=== PATIENT | female | born 1960 | race Caucasian/White ===

== ENCOUNTER 2016-12-08 14:11 | Inpatient (IN) | payer OTHER ==
--- NOTE | ~2016-12-08 | DS ---
Discharge Summary [address] [place]. [address] NAME: SANDI ARELLANO : 58 STATUS : DIS Janina PAT#: [id number] AGE: 56 ADM/REG DATE : 12/08/16 MR#: [id number] REPORT SERV DATE: 12/12/16 DICTATED BY: ELTON STAPLETON DATE: 12/11/16 REPORT STATUS : Draft TRANSCRIBED BY: MODAbdifatah DATE: 12/11/16 ADMISSION DATE: 12/08/2016 DISCHARGE DATE: 12/11/2016 CONSULTATION: None. INVASIVE PROCEDURES: None. DISCHARGE DIAGNOSES: 1. Acute encephalopathy secondary to medication side effect. 2. Acute on chronic hypoxic respiratory failure. 3. Hypertension. 4. Severe hypothyroidism. 5. Hyperlipidemia. 6. Diabetes mellitus on insulin therapy. 7. Acute kidney injury on chronic kidney disease stage 3. 8. Transaminitis. 9. Schizoaffective disorder. 10.Chronic obstructive pulmonary disease. 11.Acute urinary retention. DISCHARGE CONDITION: Stable. HISTORY OF PRESENT ILLNESS: For detailed HPI, please make reference to Dr. Elton Stapleton dictation on 12/08/2016. In brief, this is a 56-year-old female with medical history significant for COPD, diabetes mellitus type 2, schizoaffective disorder, depression, hypertension, hypothyroidism who presented to the hospital with complaints of generalized weakness and hypersomnolence. In the ER vital signs: Blood pressure was 162/87, temperature was 98.2, pulse rate was 85, respiratory rate was 18, saturating 95% on 2 L of oxygen. Physical examination done in the ER shows an excessively drowsy female but alert and oriented. On presentation, ABG showed a pH of 7.33, PaCO2 of 50, PaO2 of 60. The patient was placed on 3 L of nasal cannula oxygen. The patient's saturation subsequently improved. LABORATORY DATA: Sodium 137, potassium was 3.7, chloride was 103, bicarb was 25, creatinine was 1.09. WBC was 9.5, hemoglobin was 12.3. Chest x-ray shows evidence of pulmonary vascular congestion with no bilateral pleural effusion. Urine drug screen was negative. An assessment of acute encephalopathy secondary to possible medication side effect due to sedative hypnotics such as Lyrica and Vistaril was made in the ER, the patient was admitted to the Hospitalist Service. HOSPITAL COURSE: Acute encephalopathy. I held the patient's Vistaril and Lyrica and monitored closely. The patient's respiratory status subsequently improved. The patient also reported significant improvement in overall alertness and awake after the medications were held. All of patient's anti-psychiatry medications were continued without any behavioral disorder. Blood cultures were obtained. No evidence of infection contributing Discharge Summary [address] [place]. [address] NAME: SANDI ARELLANO : 58 STATUS : DIS Janina PAT#: [id number] AGE: 56 ADM/REG DATE : 12/08/16 MR#: [id number] REPORT SERV DATE: 12/12/16 DICTATED BY: ELTON STAPLETON DATE: 12/11/16 REPORT STATUS : Draft TRANSCRIBED BY: DEANNE DATE: 12/11/16 to patient's encephalopathy. The patient's blood sugar remained stable throughout the course of admission. No evidence of hypoglycemia contributing to the patient's encephalopathy. CT of the brain shows no acute intracranial pathology. The patient was advised to continue all regular medications and continued to hold Lyrica and Vistaril until she follows up with her primary care physician. Acute hypercapnic and hypoxic respiratory failure likely due to hypersomnolence due to elevated CO2. The patient was placed on nasal cannula oxygen became more awake and alert. Repeat ABG shows significant improvement. The patient was advised to continue follow up with primary care physician. No evidence of COPD exacerbation contributing to respiratory failure during the course of this admission. No evidence of excessive narcotic use contributing to hypercapnia. Volume overload. The patient had gentle diuresis during the course of this admission. However, the creatinine subsequently trended up to 1.4 from a baseline of 1.9. The patient's diuresis was subsequently held. The patient's creatinine subsequently trended down back to baseline prior to discharge. Severe hypothyroidism. The patient was found to have a TSH of 20 and free T4 of 0.57. She claimed that she has been compliant with levothyroxine 150 mcg as prescribed by her primary care physician. During the course of this admission, levothyroxine was increased to 175 mcg p.o. daily. The patient was advised to continue follow up with her primary care physician. Severe hypothyroidism may also explain the patient's excessive generalized fatigue and drowsiness and hypersomnolence. The patient was advised to continue follow up with her primary care physician. Elevated liver enzymes. The patient reported that she has had chronically elevated liver enzymes. Elevated liver enzymes were stable throughout the course of this admission. Right upper quadrant ultrasound was done that shows that the liver function was normal. Hepatitis profile was pending at the time of this dictation. If hepatitis profile returned back negative, the patient will be discharged and will be advised to follow up with her primary care physician. Schizoaffective disorder. No evidence of suicidal ideation, hallucination, or homicidal ideation during this admission. The patient was continued on regular home dose anti- psychiatric medication and was advised to follow up with a psychiatrist as an outpatient. Diabetes mellitus. The patient's blood sugar was controlled throughout the course of this admission with subcu insulin. The patient was advised to continue regular home dose of Levemir insulin at the time of discharge. DISCHARGE DISPOSITION: Home with home health. DISCHARGE FOLLOWUP: 1. Follow up with primary care physician within one to two weeks of discharge. 2. Follow up with psychiatrist within two to three weeks of discharge. Discharge Summary [address] [address] NAME: SANDI ARELLANO : 58 STATUS : DIS Janina PAT#: [id number] AGE: 56 ADM/REG DATE : 12/08/16 MR#: [id number] REPORT SERV DATE: 12/12/16 DICTATED BY: ELTON STAPLETON DATE: 12/11/16 REPORT STATUS : Draft TRANSCRIBED BY: DEANNE DATE: 12/11/16 DISCHARGE ACTIVITY: As tolerated. DISCHARGED DIET: ADA 1800 calorie diet. Greater than 35 minutes was used to prepare this patient's discharge, reconcile medication, and advised the patient on discharge plans and followup. DICTATED BY: MD DONYA Alamo/DEANNE Elton Stapleton MD / [id number] CC: Elton Stapleton MD
--- NOTE | ~2016-12-08 | HP ---
History And Physical [address] [address] [facility] [place]. [address] NAME: SANDI ARELLANO : 58 STATUS : ADM Janina PAT#: [id number] AGE: 56 ADM/REG DATE : 12/08/16 MR#: [id number] REPORT SERV DATE: 12/08/16 DICTATED BY: ELTON STAPLETON DATE: 12/08/16 REPORT STATUS : Draft TRANSCRIBED BY: DEANNE DATE: 12/08/16 DATE OF ADMISSION: 12/08/2016 CHIEF COMPLAINT: Generalized weakness and somnolence. HISTORY OF PRESENT ILLNESS: This is a 56-year-old female with medical history significant for COPD, diabetes mellitus type 2, schizoaffective disorder, depression, hypertension, hypothyroidism, who presented to the hospital with complaints of generalized weakness and somnolence. The patient reports that she was in her usual state of health until about five days ago when she went to her primary care physician with complaint of left heel pain. She reported that her primary care physician gave her a steroid injection on her left heel and was subsequently advised to continue all her regular medications. Subsequently, she reports that within 24 hours, she started noticing progressive generalized weakness, and had multiple ground level falls. She reports no loss of consciousness, no presyncope, and no head injury. The patient reports that she has developed generalized fatigue, generalized weakness, but denies any fever, no chills. On the day of presentation, she reported she woke up in the morning, took all her regular medications including anti-psychiatric medications, decided to walk to the bathroom, but continued to feel extremely weak. She decided to sit right on the floor in the bathroom while trying to call for help of her partner to help. She reported that her partner came to the bathroom, but was unable to help her up. They decided to call the EMS. Prior to arrival of the EMS, the patient reported that she became very drowsy and subsequently fell asleep. On arrival of the EMS, it was noted that the patient was very somnolent, was uneasy to arouse. Per verbal report, it was noted that the patient reported that she fell into a "deep sleep." On arriving to the ER, the patient was noted to continue to have excessive drowsiness. An ABG was done that showed a pH of 7.33, PaCO2 of 50, PaO2 of 60. The patient was placed on nasal oxygen and saturation subsequently improved. In the ER, initial assessment by ER's report was concerned for benzo overdose; however, the patient had a urine drug screen that was negative for benzodiazepine. At the time of my evaluation, the patient was more alert, was alert, and reported the history stated above. At the time of my evaluation, in addition to the above-stated history, the patient also reported diffuse generalized body swelling, reported bilateral lower extremity swelling, and occasional shortness of breath. She denied any cough, no fever, no chills. She denies any orthopnea, no PND, no chest pain, no palpitation. She denied any history of seizure-like activities. No recent hypoglycemia episodes. PAST MEDICAL HISTORY: 1. Insulin-treated diabetes mellitus type 2. 2. COPD. 3. Schizoaffective disorder. History And Physical [address] [address] NAME: SANDI ARELLANO : 58 STATUS : ADM Janina PAT#: [id number] AGE: 56 ADM/REG DATE : 12/08/16 MR#: [id number] REPORT SERV DATE: 12/08/16 DICTATED BY: ELTON STAPLETON DATE: 12/08/16 REPORT STATUS : Draft TRANSCRIBED BY: DEANNE DATE: 12/08/16 4. Hypertension. 5. Hyperlipidemia. 6. Hypothyroidism. 7. History of diabetic ketoacidosis in 09/11/2016. 8. History of type 2 [place], 09/08/2016. 9. Also prior history of RAFAEL. PAST SURGICAL HISTORY: 1. History of cholecystectomy. 2. Allergy history. ALLERGIES: SHE IS ALLERGIC TO PENICILLIN, SULFA, CODEINE, AND ZOFRAN. SOCIAL HISTORY: The patient continues to smoke one pack of cigarettes a day. Denies drinking alcohol or illicit drug use. She reports she has a living partner, they have been living together for over 20 years. FAMILY HISTORY: Significant for diabetes mellitus and hypertension. HOME MEDICATIONS: 1. Levemir 25 units subcu b.i.d. 2. Insulin lispro per sliding scale. 3. Dulera 200 mcg/5 mcg inhaler two puffs b.i.d. 4. Ketoralac 10 mg p.o. daily. 5. Zestoretic 05/02.5 one tablet p.o. daily. 6. Synthroid 150 mcg p.o. daily. 7. Hinckley-3 fatty acid 1000 mg p.o. daily. 8. Montelukast 10 mg p.o. daily. 9. Prednisone 10 mg p.o. daily. 10.Phenergan 25 mg p.o. four times a day. 11.Trazodone 150 mg p.o. at bedtime. 12.Zoloft 400 mg p.o. daily. 13.Glipizide extended release 5 mg p.o. daily. 14.Aspirin 81 mg p.o. daily. 15.Loratadine 10 mg p.o. daily. 16.Benztropine 2 mg p.o. b.i.d. 17.Lyrica 150 mg p.o. three times a day. 18.Fluphenazine 2.5 mg p.o. b.i.d. 19.Vistaril 25 mg p.o. four times a day. 20.Bupropion 100 mg p.o. daily. 21.Lipitor 40 mg p.o. daily. REVIEW OF SYSTEMS: A 12-point review of systems performed, positive findings as per HPI. PHYSICAL EXAMINATION: VITAL SIGNS: Blood pressure 162/84, temperature 98.2, pulse rate 85, respiratory rate 18, History And Physical [address] [address] NAME: SANDI ARELLANO : 58 STATUS : ADM Janina PAT#: [id number] AGE: 56 ADM/REG DATE : 12/08/16 MR#: [id number] REPORT SERV DATE: 12/08/16 DICTATED BY: ELTON STAPLETON DATE: 12/08/16 REPORT STATUS : Draft TRANSCRIBED BY: MODL DATE: 12/08/16 saturating 95% on 2 L of oxygen. GENERAL: The patient is awake, but occasionally feels drowsy, but not in any obvious respiratory distress. HEENT: Pupils equal, round, and reactive. Extraocular muscles intact. Not pale. Acyanotic. Anicteric. Oral mucosa dry. NECK: No JVD. No bruit. No palpably enlarged thyromegaly. CHEST: Nontender. Equal expansion. LUNGS: Clear to auscultation bilaterally. No wheezes. No rhonchi. ABDOMEN: Bowel sounds normoactive. Soft, nontender. No palpably enlarged organomegaly. EXTREMITIES: Lower extremities; bilateral pitting edema, 2+ all the way down to the knee. LABORATORY DATA: Arterial blood gas: The pH of 7.33, PaCO2 of 50, PaO2 of 60. Chemistry: Sodium 137, potassium 6.7, chloride 103, bicarb 25, BUN 46, creatinine 1.09, GFR 56, glucose 236, calcium 8.8, magnesium 2.4. Troponin less than 0.02. Acetaminophen less than 2.0. Salicylates 2.7. Alcohol less than 10. Hematology: WBC 9.5, hemoglobin 12.3, hematocrit 35.5, platelets 233. PT 12.1. INR 0.9. IMAGING: CT brain, impression: Unremarkable noncontrast head CT. No acute intracranial pathology. Chest x-ray: I personally reviewed the patient's chest x-ray. Per my interpretation, presence of pulmonary vascular congestion. No bilateral pleural effusion. Official report pending. Urinalysis negative. Urine drug screen, negative. ASSESSMENT: 1. Acute encephalopathy. 2. Acute respiratory failure with hypercapnia and hypoxia. 3. Volume overload. 4. Chronic obstructive pulmonary disease. 5. Schizoaffective disorder. 6. Hypothyroidism. 7. Hypertension. 8. Insulin treated diabetes mellitus. 9. Hypothyroidism. 10.Hyperlipidemia. PLAN: 1. Acute encephalopathy. Definitive etiology at this time unclear, but my suspicion is that this may be related to the patient's medication side effects, especially the antipsychotic medications and the anti-hypnotic medication. At this time, given the patient has extensive psychiatric history, I will not hold off any of the antipsychotic History And Physical [address] [address] NAME: SANDI ARELLANO : 58 STATUS : ADM Janina PAT#: [id number] AGE: 56 ADM/REG DATE : 12/08/16 MR#: [id number] REPORT SERV DATE: 12/08/16 DICTATED BY: ELTON STAPLETON DATE: 12/08/16 REPORT STATUS : Draft TRANSCRIBED BY: MODL DATE: 12/08/16 medications; however, sedating medications such as Atarax and Lyrica will be held at this time. Neuro checks will be performed every four hours. The patient will be admitted to the cardiac tele for close monitoring. 2. Acute respiratory failure with hypercapnia and hypoxia, likely due to the patient's hypersomnolence. No evidence of opioid overdose in this patient. The patient's physical examination is not in keeping with acute COPD exacerbation. At this time, now that the patient is more alert, I will repeat ABG to further re-evaluate the patient's respiratory status. The patient will continue oxygen by nasal cannula. The patient is currently maintaining O2 saturation above 98% on 2 L of oxygen. 3. Fluid overload. The patient has significant bilateral lower extremity edema. Chest x- ray showed mild pulmonary congestion per my interpretation. I will check a BNP. I will treat the patient with empiric IV Lasix 40 mg x1 dose, and monitor closely. The patient's last echocardiogram was done in 09/08/2016 and shows a preserved EF. I will not repeat an echocardiogram at this time. I will obtain a urine protein creatinine ratio. 4. Schizoaffective disorder. I will continue the patient's home dose anti-psychiatric medication. No evidence of hallucination or behavioral disorder at this time. 5. Hypertension. We will continue the patient's home dose of blood pressure. 6. Hypothyroidism. I will check a TSH and free T4. I will continue the patient's levothyroxine. 7. Insulin treated diabetes mellitus type 2. Last known A1c was 10.9. The patient's blood sugar on presentation was 236. The patient does not meet the diagnostic criteria for DKA at the time of my evaluation, the patient's repeat blood sugar was 158. We will continue the patient's Levemir and sliding scale insulin at this time. 8. Code status, full code. 9. Admission disposition, cardiac tele. 10.Admission diet, 1800 ADA calorie diet. 11.Admission status, observation. IOO/MODL Elton Stapleton MD / [id number] CC: Elton Stapleton MD
[2016-12-08 12:04] LABS: BASOPHILS 0.4 %; BASOPHILS ABSOLUTE 0.04 10/3/uL (0.0-0.16); EOSINOPHILS 2.2 %; EOSINOPHILS ABSOLUTE 0.21 10/3/uL (0.0-0.53); HEMATOCRIT 35.5 % (36.0-48.0); HEMOGLOBIN 12.3 g/dL (12.0-16.0); IMMATURE GRANULOCYTES 1.4 %; IMMATURE GRANULOCYTES ABSOLUTE 0.13 10/3/uL (0.0-0.11); LYMPHOCYTES 26.2 %; LYMPHOCYTES ABSOLUTE 2.48 10/3/uL (0.67-4.30); MEAN CORPUS HGB CONC 34.6 g/dL (32.0-36.0); MEAN CORPUSCULAR HEMOGLOB 29.7 pg (26.0-34.0); MEAN CORPUSCULAR VOLUME 85.7 fL (80-100); MEAN PLATELET VOLUME 9.8 fL (9.2-13.0); MONOCYTES 5.9 %; MONOCYTES ABSOLUTE 0.56 10/3/uL (0.21-1.20); NEUTROPHILS 63.9 %; NEUTROPHILS ABSOLUTE 6.05 10/3/uL (2.02-8.40); PLATELET COUNT 233 10/3/uL (150-400); RBC DISTRIBUTION WIDTH 13.9 % (12.0-16.0); RED CELL COUNT 4.14 10/6/uL (4.0-5.6); WHITE BLOOD CELLS 9.5 10/3/uL (4.5-10.5)
[2016-12-08 12:07] LABS: MANUAL DIFF NO %
[2016-12-08 12:13] LABS: INTERNATIONAL NORMAL RATI 0.9 UNITS (-); PARTIAL THROMBO TIME 25.7 SEC (22.5-37.2); PROTIME (NOT ORD) 12.1 SEC (12.0-14.5)
[2016-12-08 12:21] LABS: CHEST PAIN PROFILE TAT 0 Hrs 21 Mins; CHLORIDE, SERUM 103 MMOL/L (96-112); CO2 (CARBON DIOXIDE) 25 MMOL/L (24-34); CREATININE 1.09 MG/DL (0.55-1.02); GFR AFRICAN AMERICAN 65 ML/MIN (>=60); GFR NON AFRICAN AMERICAN 56 ML/MIN (>=60); SALICYLATE 2.7 MG/DL (-); SODIUM, SERUM 137 MMOL/L (135-148); TROPONIN I <0.02 NG/ML (<0.05)
[2016-12-08 12:21] LABS: ALLENS TEST Pos; BE (BASE EXCESS) -0.9 MEQ/L (0 +/- 2.5); CARBOXYHEMOGLOBIN 6.9 % (0-3); HCO3 (ACTUAL BICARBONATE) 25.7 MEQ/L (23-27); INSTRUMENT SERIAL # 8087; O2 CONTENT 15.6 VOL% (18-24); OPERATOR ID 18801; PCO2 (CO2 TENSION) 50 MMHG (35-45); PO2 (O2 TENSION) 60 MMHG (79-93); SAMPLE Arterial; pH 7.33 (7.37-7.43)
[2016-12-08 12:23] LABS: ACETAMINOPHEN LEVEL (TYLENOL) < 2.0 MCG/ML (10.0-20.0); ALCOHOL < 10 MG/DL (0); BUN (BLOOD UREA NITROGEN) 46 MG/DL (6-23); CALCIUM, SERUM 8.8 MG/DL (8.5-10.4); GLUCOSE, SERUM 236 MG/DL (60-99); POTASSIUM, SERUM 4.7 MMOL/L (3.5-5.3)
[~2016-12-08 14:11] MED LIST: *UNABLE1; *UNABLE2; ADVAIR INH; ASAB PO; ASABAYER PO; AT25 PO; BUPROPION PO; BUSPAR15 M1 PO; BUSPIRONE7.5 MG PO; CELEXA PO; CELEXA40 MG PO; CLARIT10 PO; COG2 PO; COGENTIN; COMBIVENT RESPIM4 GM INH; EX-LAX PO; FLONASE NAS; FLUPHENAZINE; FLUPHENAZINE PO; FLUPHENAZINE10 MG PO; FLUPHENAZINE5 MG PO; GLUCOPHAGE1000 MG PO; GLUCOTRO10 PO; GLUCPH PO; GLUCXL5 PO; HUMALOG SC; LANTUS SC; LEVAQUIN750 MG PO; LEVEMIR SC; LIPITOR40 PO; LYRICA PO; LYRICA150 MG PO; LYRICA75 PO; METFORMIN PO; NOVOLOG SC; PR25 PO; PRINZIDE1 TAB PO; PROVENTSOL INH; PROVHFA INH; SYN.025B PO; SYN125 PO; SYNTHROID PO; VASOTEC10 PO; WELLSR100 PO; ZOL50 PO; [UNRECOGNIZED DRUG - OTHER]
[2016-12-08 15:38] LABS: ASCORBIC ACID (UR NOT ORDER) NEG (NEG); BILIRUBIN, URINE NEGATIVE (NEG); ER URINALYSIS TAT 0 Hrs 10 Mins; KETONE, URINE NEGATIVE (NEG); LEUKOCYTE ESTERASE(NOT OR NEG (NEG); NITRITE (URINE) NEG (NEG); WBC (NOT ORDERED) (RFLEX) 2 (0-5)
[2016-12-08 15:45] LABS: AMPHETAMINES (NOT ORD) NEG (NEG); BARBITURATES (NOT ORDERED NEG (NEG); BENZODIAZEPINES (NOT ORD) NEG (NEG); CANNABINOIDS (THC) NEG (NEG); COCAINE (NOT ORDERED) NEG (NEG); OPIATES NEG (NEG); PHENCYCLIDINE(PCP) NEG (NEG); TRICYCLICS NEG (NEG)
[2016-12-08] MEDS ORDERED: LEVEMIR SC (15:51)
[2016-12-08] MEDS ORDERED: Humalog Inj (15:51)
[2016-12-08] MEDS ORDERED: TORATAB PO (15:52)
[2016-12-08] MEDS ORDERED: DULERA 200 MCG/13 GM INH (15:52)
[2016-12-08] MEDS ORDERED: SINGULAIR1 PO (15:53)
[2016-12-08] MEDS ORDERED: Fish Oil (15:53)
[2016-12-08] MEDS ORDERED: Zestoretic (15:53)
[2016-12-08] MEDS ORDERED: LEVOTHYROXIN175 MCG PO (15:53)
[2016-12-08] MEDS ORDERED: PREDNISONE (15:53)
[2016-12-08] MEDS ORDERED: TRAZODONE150 MG PO (15:54)
[2016-12-08] MEDS ORDERED: PR25 PO (15:54)
[2016-12-08] MEDS ORDERED: GLUCOTRO10 PO (15:55)
[2016-12-08] MEDS ORDERED: ZOL100 PO (15:55)
[2016-12-08] MEDS ORDERED: ASAB PO (15:55)
[2016-12-08] MEDS ORDERED: FLUPHENAZINE (15:56)
[2016-12-08] MEDS ORDERED: COG2 PO (15:56)
[2016-12-08] MEDS ORDERED: CLARIT10 PO (15:56)
[2016-12-08] MEDS ORDERED: LYRICA150 MG PO (15:56)
[2016-12-08] MEDS ORDERED: VIST25 PO (15:58)
[2016-12-08] MEDS ORDERED: LIPITOR40 PO (15:58)
[2016-12-08] MEDS ORDERED: WELLSR100 PO (15:58)
[2016-12-08 20:32] LABS: FREE T4 0.57 NG/DL (0.76-1.46)
[2016-12-08 20:33] LABS: ULTRASENSITIVE TSH 20.6 MCIU/ML (0.358-3.740)
[2016-12-08 22:07] LABS: ALLENS TEST Pos; BE (BASE EXCESS) 1.1 MEQ/L (0 +/- 2.5); CARBOXYHEMOGLOBIN 2.9 % (0-3); HCO3 (ACTUAL BICARBONATE) 26.3 MEQ/L (23-27); HEMOBLOGIN CONTENT 14.2 G/DL (12-16); INSTRUMENT SERIAL # 35151; METHEMOGLOBIN 0.5 % (0-3); O2 CONTENT 17.9 VOL% (18-24); OPERATOR ID 31061; PCO2 (CO2 TENSION) 44 MMHG (35-45); PO2 (O2 TENSION) 65 MMHG (79-93); SAMPLE Arterial; pH 7.39 (7.37-7.43)
[2016-12-09 07:10] LABS: BASOPHILS 0.5 %; BASOPHILS ABSOLUTE 0.04 10/3/uL (0.0-0.16); EOSINOPHILS 1.1 %; EOSINOPHILS ABSOLUTE 0.09 10/3/uL (0.0-0.53); HEMOGLOBIN 12.5 g/dL (12.0-16.0); IMMATURE GRANULOCYTES 1.3 %; IMMATURE GRANULOCYTES ABSOLUTE 0.11 10/3/uL (0.0-0.11); LYMPHOCYTES 31.2 %; MANUAL DIFF NO %; MEAN CORPUS HGB CONC 34.7 g/dL (32.0-36.0); MEAN CORPUSCULAR HEMOGLOB 29.6 pg (26.0-34.0); MEAN CORPUSCULAR VOLUME 85.1 fL (80-100); MEAN PLATELET VOLUME 10.2 fL (9.2-13.0); MONOCYTES ABSOLUTE 0.33 10/3/uL (0.21-1.20); NEUTROPHILS 61.9 %; NEUTROPHILS ABSOLUTE 5.16 10/3/uL (2.02-8.40); PLATELET COUNT 238 10/3/uL (150-400); RBC DISTRIBUTION WIDTH 14.1 % (12.0-16.0); RED CELL COUNT 4.23 10/6/uL (4.0-5.6); WHITE BLOOD CELLS 8.3 10/3/uL (4.5-10.5)
[2016-12-09 07:37] LABS: A/G RATIO 0.6 (0.7-1.9); ALBUMIN 2.1 G/DL (3.5-5.0); BUN (BLOOD UREA NITROGEN) 46 MG/DL (6-23); CALCIUM, SERUM 8.5 MG/DL (8.5-10.4); CHLORIDE, SERUM 103 MMOL/L (96-112); CO2 (CARBON DIOXIDE) 26 MMOL/L (24-34); CREATININE 1.03 MG/DL (0.55-1.02); GFR AFRICAN AMERICAN 70 ML/MIN (>=60); GFR NON AFRICAN AMERICAN 60 ML/MIN (>=60); GLOBULIN 3.3 G/DL (2.5-4.1); SGOT(AST) 66 U/L (5-40); SGPT(ALT) 75 U/L (5-65); SODIUM, SERUM 136 MMOL/L (135-148); TOTAL PROTEIN 5.4 G/DL (6.0-8.5)
[2016-12-09 07:38] LABS: ALKALINE PHOSPHATASE 204 U/L (45-117); GLUCOSE, SERUM 389 MG/DL (60-99); PHOSPHORUS, SERUM 3.8 MG/DL (2.5-4.5); TOTAL BILIRUBIN 0.2 MG/DL (0-1.2)
[2016-12-09 17:01] LABS: BASOPHILS 0.4 %; BASOPHILS ABSOLUTE 0.04 10/3/uL (0.0-0.16); EOSINOPHILS 1.2 %; EOSINOPHILS ABSOLUTE 0.13 10/3/uL (0.0-0.53); HEMATOCRIT 36.3 % (36.0-48.0); HEMOGLOBIN 12.5 g/dL (12.0-16.0); IMMATURE GRANULOCYTES 0.9 %; IMMATURE GRANULOCYTES ABSOLUTE 0.09 10/3/uL (0.0-0.11); LYMPHOCYTES 37.2 %; MEAN CORPUS HGB CONC 34.4 g/dL (32.0-36.0); MEAN CORPUSCULAR HEMOGLOB 29.8 pg (26.0-34.0); MEAN CORPUSCULAR VOLUME 86.6 fL (80-100); MEAN PLATELET VOLUME 10.3 fL (9.2-13.0); MONOCYTES 5.3 %; MONOCYTES ABSOLUTE 0.55 10/3/uL (0.21-1.20); NEUTROPHILS ABSOLUTE 5.76 10/3/uL (2.02-8.40); PLATELET COUNT 256 10/3/uL (150-400); RBC DISTRIBUTION WIDTH 14.2 % (12.0-16.0); RED CELL COUNT 4.19 10/6/uL (4.0-5.6); WHITE BLOOD CELLS 10.5 10/3/uL (4.5-10.5)
[2016-12-09 17:05] LABS: MANUAL DIFF NO %
[2016-12-09 17:14] LABS: BUN (BLOOD UREA NITROGEN) 49 MG/DL (6-23); CALCIUM, SERUM 8.6 MG/DL (8.5-10.4); CHLORIDE, SERUM 103 MMOL/L (96-112); CREATININE 1.43 MG/DL (0.55-1.02); GFR AFRICAN AMERICAN 47 ML/MIN (>=60); GFR NON AFRICAN AMERICAN 41 ML/MIN (>=60); PHOSPHORUS, SERUM 4.7 MG/DL (2.5-4.5); POTASSIUM, SERUM 4.5 MMOL/L (3.5-5.3); SODIUM, SERUM 139 MMOL/L (135-148)
[2016-12-09 17:18] LABS: CO2 (CARBON DIOXIDE) 32 MMOL/L (24-34); GLUCOSE, SERUM 78 MG/DL (60-99)
[2016-12-09 18:41] LABS: ALBUMIN 2.3 G/DL (3.5-5.0); TOTAL BILIRUBIN 0.2 MG/DL (0-1.2); TOTAL PROTEIN 5.5 G/DL (6.0-8.5)
[2016-12-09 18:44] LABS: ALKALINE PHOSPHATASE 211 U/L (45-117); DIRECT BILIRUBIN < 0.1 MG/DL (0.0-0.4); INDIRECT BILIRUBIN(NOT ORDER) 0.1 MG/DL (0.1-0.9); SGOT(AST) 78 U/L (5-40); SGPT(ALT) 79 U/L (5-65)
[2016-12-10 09:22] LABS: BASOPHILS 0.2 %; BASOPHILS ABSOLUTE 0.02 10/3/uL (0.0-0.16); EOSINOPHILS 1.9 %; EOSINOPHILS ABSOLUTE 0.21 10/3/uL (0.0-0.53); HEMATOCRIT 38.9 % (36.0-48.0); HEMOGLOBIN 12.8 g/dL (12.0-16.0); IMMATURE GRANULOCYTES 0.7 %; IMMATURE GRANULOCYTES ABSOLUTE 0.08 10/3/uL (0.0-0.11); LYMPHOCYTES 25.9 %; LYMPHOCYTES ABSOLUTE 2.87 10/3/uL (0.67-4.30); MANUAL DIFF NO %; MEAN CORPUS HGB CONC 32.9 g/dL (32.0-36.0); MEAN CORPUSCULAR HEMOGLOB 29.3 pg (26.0-34.0); MEAN PLATELET VOLUME 10.3 fL (9.2-13.0); MONOCYTES 2.9 %; MONOCYTES ABSOLUTE 0.32 10/3/uL (0.21-1.20); NEUTROPHILS 68.4 %; PLATELET COUNT 235 10/3/uL (150-400); RBC DISTRIBUTION WIDTH 14.2 % (12.0-16.0); RED CELL COUNT 4.37 10/6/uL (4.0-5.6); WHITE BLOOD CELLS 11.1 10/3/uL (4.5-10.5)
[2016-12-10 09:33] LABS: ALBUMIN 2.3 G/DL (3.5-5.0); ALKALINE PHOSPHATASE 214 U/L (45-117); CALCIUM, SERUM 8.4 MG/DL (8.5-10.4); CHLORIDE, SERUM 104 MMOL/L (96-112); CREATININE 1.13 MG/DL (0.55-1.02); GFR AFRICAN AMERICAN 62 ML/MIN (>=60); GFR NON AFRICAN AMERICAN 54 ML/MIN (>=60); POTASSIUM, SERUM 4.6 MMOL/L (3.5-5.3); SGOT(AST) 64 U/L (5-40); SGPT(ALT) 74 U/L (5-65); SODIUM, SERUM 134 MMOL/L (135-148); TOTAL BILIRUBIN 0.3 MG/DL (0-1.2); TOTAL PROTEIN 5.7 G/DL (6.0-8.5)
[2016-12-10 09:34] LABS: BUN (BLOOD UREA NITROGEN) 45 MG/DL (6-23); CO2 (CARBON DIOXIDE) 27 MMOL/L (24-34); DIRECT BILIRUBIN < 0.1 MG/DL (0.0-0.4); GLUCOSE, SERUM 273 MG/DL (60-99); INDIRECT BILIRUBIN(NOT ORDER) 0.2 MG/DL (0.1-0.9); PHOSPHORUS, SERUM 3.6 MG/DL (2.5-4.5)
[2016-12-11 12:41] LABS: HEP A ANTIBODY IGM NON-REACTIVE (NON-REACT); HEPATITIS B CORE AB IGM NON-REACTIVE (NON-REAC); HEPATITIS B SURFACE ANTIGEN NON-REACTIVE (NON-REACT)
[2016-12-11 12:42] LABS: HEPATITIS C ANTIBODY NON-REACTIVE (NON-REACT)
[2016-12-11] MEDS ORDERED: MULTIVITAMIN (13:23)
[2016-12-11] MEDS ORDERED: NICOTINE PATCH (13:24)
[2017-01-26] MEDS ORDERED: AT25 PO (10:09)
[2017-01-26] MEDS ORDERED: BACTROINT TOP (10:11)
[2017-01-26] MEDS ORDERED: PROVHFA INH (10:11)
[2017-01-26] MEDS ORDERED: NEUR300 PO (10:12)
[2017-01-26] MEDS ORDERED: COMBIVENT RESPIM4 GM INH (10:15)
[2017-01-28] MEDS ORDERED: FISH-EPA1000 MG PO (14:59)
[2017-01-28] MEDS ORDERED: COMBIVENT RESPIM4 GM INH (15:00)
[2017-01-28] MEDS ORDERED: MULTIVITAMI1 PO (15:03)
[2017-01-28] MEDS ORDERED: ZESTORETIC1 TAB PO (15:04)
[2017-01-28] MEDS ORDERED: FLUPHENAZINE2.5 MG PO (15:05)
[2017-01-28] MEDS ORDERED: PR25 PO (15:06)
[2017-01-28] MEDS ORDERED: CLINDA150 PO (15:07)
[2017-01-28] MEDS ORDERED: HUMALOG (15:12)
[2017-02-04] MEDS ORDERED: COREG12 PO (11:48)
[2017-02-04] MEDS ORDERED: NOVOLOG SC ×2 (11:50)
[2017-02-04] MEDS ORDERED: LEVEMIR SC (12:00)
[2017-02-04] MEDS ORDERED: SEROQUEL1C PO (12:05)
[2017-02-08] MEDS ORDERED: *UNABLE2 (05:02)
[2017-02-08] MEDS ORDERED: COREG6 PO (11:20)
[2017-02-08] MEDS ORDERED: LIPITOR40 PO (11:20)
[2017-02-08] MEDS ORDERED: HALF81 PO (11:20)
[2017-02-08] MEDS ORDERED: CLARIT10 PO (11:21)
[2017-02-08] MEDS ORDERED: NEUR300 PO (11:21)
[2017-02-08] MEDS ORDERED: NOVOLOG SC (11:21)
[2017-02-08] MEDS ORDERED: SYNTHROID175 MCG PO (11:21)
[2017-02-08] MEDS ORDERED: ZESTORETIC1 TAB PO (11:21)
[2017-02-08] MEDS ORDERED: FISH-EPA1000 MG PO (11:22)
[2017-02-08] MEDS ORDERED: MULTIVITAMI1 PO (11:22)
[2017-02-08] MEDS ORDERED: ZOL100 PO (11:22)
[2017-02-08] MEDS ORDERED: SINGULAIR1 PO (11:22)
[2017-02-08] MEDS ORDERED: SEROQUEL1C PO ×2 (11:22→17:01)
[2017-02-08] MEDS ORDERED: COMBIVENT RESPIM4 GM INH (11:23)
[2017-02-08] MEDS ORDERED: BACTROINT TOP (11:23)
[2017-02-08] MEDS ORDERED: LEVEMIR SC ×2 (11:23→16:57)
[2017-02-08] MEDS ORDERED: DULERA 200 MCG/13 GM INH (11:23)
[2017-03-10] MEDS ORDERED: PROVHFA INH (20:56)
[2017-03-10] MEDS ORDERED: VIST25 PO (20:57)
[2017-03-10] MEDS ORDERED: JANUMET1 TA1 PO (20:57)
[2017-03-10] MEDS ORDERED: TRAZODONE150 MG PO (20:59)
[2017-03-10] MEDS ORDERED: PR25 PO (20:59)
[2017-03-10] MEDS ORDERED: ACET500CAP PO (21:01)
[2017-03-13] MEDS ORDERED: LEVAQUIN750 MG PO (09:19)
[2017-03-13] MEDS ORDERED: FLORASTOR250 MG PO (09:20)
[2017-03-13] MEDS ORDERED: NICOTINE PATCH TOP (09:21)
[2017-03-24] MEDS ORDERED: NEUR300 PO (09:47)
[2017-03-24] MEDS ORDERED: CENTRUM PO (09:47)
[2017-03-28] MEDS ORDERED: NOVOLOG SC (13:46)
[2017-03-28] MEDS ORDERED: LEVEMIR SC (13:47)
[2017-03-28] MEDS ORDERED: ZESTRIL20 MG PO (13:52)
[2017-03-28] MEDS ORDERED: SUCR PO (13:52)
[2017-04-23] MEDS ORDERED: COMBIVENT RESPIM4 GM PO (12:38)
[2017-04-23] MEDS ORDERED: PROVHFA INH (12:39)
[2017-04-23] MEDS ORDERED: HALF81 PO (12:39)
[2017-04-23] MEDS ORDERED: KLONO5 PO (12:39)
[2017-04-23] MEDS ORDERED: NEUR300 PO (12:39)
[2017-04-23] MEDS ORDERED: VIST50 PO (12:39)
[2017-04-23] MEDS ORDERED: COREG (12:40)
[2017-04-23] MEDS ORDERED: LIPITOR40 PO (12:40)
[2017-04-23] MEDS ORDERED: NOVOLOG SC (12:41)
[2017-04-23] MEDS ORDERED: LEVEMFLXPN SC (12:41)
[2017-04-23] MEDS ORDERED: HYDROCHLOROT25 MG PO (12:42)
[2017-04-23] MEDS ORDERED: PRIN20 PO (12:42)
[2017-04-23] MEDS ORDERED: SINGULAIR1 PO (12:43)
[2017-04-23] MEDS ORDERED: DULERA 200 MCG/13 GM INH (12:43)
[2017-04-23] MEDS ORDERED: SYNTHROID200 MCG PO (12:43)
[2017-04-23] MEDS ORDERED: CENTRUM PO (12:44)
[2017-04-23] MEDS ORDERED: SEROQUEL1C PO (12:45)
[2017-04-23] MEDS ORDERED: SUCR PO (12:46)
[2017-04-23] MEDS ORDERED: ZOL50 PO (12:46)
[2017-04-23] MEDS ORDERED: TRAZ100 PO (12:47)
[2017-04-23] MEDS ORDERED: CLARIT10 PO (12:50)
== END 2016-12-11 14:45 | disposition home health service (06) | DRG 189 ==
LOC: ER 14:11 → 6NO 18:05
PROVIDERS: Emergency Medicine; Hospitalist
DX: J96.21 Acute and chronic respiratory failure with hypoxia (principal); G92 Toxic encephalopathy; N17.9 Acute kidney failure, unspecified; N18.3 Chronic kidney disease, stage 3 (moderate); J44.9 Chronic obstructive pulmonary disease, unspecified; J96.22 Acute and chronic respiratory failure with hypercapnia; T42.6X5A Adverse effect of other antiepileptic and sedative-hypnotic drugs, initial encounter; T43.595A Adverse effect of other antipsychotics and neuroleptics, initial encounter; E11.9 Type 2 diabetes mellitus without complications; Z79.4 Long term (current) use of insulin; R33.9 Retention of urine, unspecified; E78.5 Hyperlipidemia, unspecified; R74.0 Nonspecific elevation of levels of transaminase and lactic acid dehydrogenase [LDH]; F25.9 Schizoaffective disorder, unspecified; E03.9 Hypothyroidism, unspecified; F32.9 Major depressive disorder, single episode, unspecified; E87.70 Fluid overload, unspecified; I25.2 Old myocardial infarction; Z90.49 Acquired absence of other specified parts of digestive tract; Z88.0 Allergy status to penicillin; Z88.2 Allergy status to sulfonamides; Z88.5 Allergy status to narcotic agent; Z83.3 Family history of diabetes mellitus; Z82.49 Family history of ischemic heart disease and other diseases of the circulatory system
CPT/HCPCS: 36600; 70450; 71010; 76705; 80048; 80053; 80074; 80076; 80305; 80307; 81001; 82533; 82805; 82962; 83605; 83735; 83880; 84100; 84439; 84443; 84484; 85025; 85610; 85730; 87040; 93005; 94640; 96374; 97161-GP; 99285; A9270-GY; J0834